=== PATIENT | male | born 1945 | race Caucasian/White ===

== ENCOUNTER 2016-10-27 16:25 | Emergency (ER) | payer MEDICARE, MEDICAID ==
[~2016-10-27] VITALS: Ht 182.9 cm; Wt 84.0 kg
[~2016-10-27 16:25] MED LIST: ACET-2178 PO; BUPR100T13 PO; GABA-290 PO; IPRA3AMP9 INH; LACT10SO PO; MULT-1146 PO; SUCR1TAB PO; TRAM150C26 PO
[2016-10-27] MEDS ORDERED: KETOROLAC 15MG/ML VIAL IV ONE (18:45)
[2016-10-27 19:06] VITALS: BP 115/76
== END 2016-10-27 19:34 | disposition home or self-care (01) ==
LOC: ER 16:26
DX: G62.9 Polyneuropathy, unspecified (principal); R52 Pain, unspecified; Z79.899 Other long term (current) drug therapy
CPT/HCPCS: 96374; 99284; J1885

== ENCOUNTER 2017-02-26 13:03 | Inpatient (IN) | payer MEDICARE, MEDICAID ==
[~2017-02-26] VITALS: Ht 182.9 cm; Wt 81.6 kg
[2017-02-26] MEDS ORDERED: SODIUM CHLORIDE 0.9% 1,000 ML IV ONE (14:29)
[2017-02-26] MEDS ORDERED: PIPERACILLIN/TAZOBACTAM 3.375GM/50ML PREMIX IV ONE (14:30)
[2017-02-26] MEDS ORDERED: CLINDAMYCIN 300 MG in DEXTROSE 5% WATER 50 ML IV ONE (14:30)
[2017-02-26] MEDS ORDERED: PIPERACILLIN/TAZ 3.375G PREMIX 50 ML IV NR (14:47)
[2017-02-26] MEDS ORDERED: CLINDAMYCIN 300 MG in DEXTROSE 5% WATER 50 ML IV SCH (15:00)
[2017-02-26 15:20] LABS: CLARITY URINE CLOUDY (CLEAR); COLOR URINE YELLOW (YELLOW); GLUCOSE URINE NEGATIVE (NEGATIVE); KETONES URINE NEGATIVE (NEGATIVE); LEUKOCYTE ESTERASE URINE 3+ (NEGATIVE); NITRITE URINE NEGATIVE (NEGATIVE); OCCULT BLOOD URINE 1+ (NEGATIVE); PH URINE 6.5 (4.5-8.0); PROTEIN URINE NEGATIVE (NEGATIVE); SPECIFIC GRAVITY URINE 1.015 (1.005-1.030)
[2017-02-26 15:24] LABS: CHLORIDE 110 mEq/L (98-107)
[2017-02-26 15:30] LABS: CARBON DIOXIDE 27 mEq/L (21-32)
[2017-02-26 16:44] LABS: BASOPHILS % 1.1 % (0.0-2.0); EOSINOPHILS % 4.3 % (0.0-5.0); HEMATOCRIT. 39.5 % (42.0-52.0); HEMOGLOBIN. 13.7 g/dL (14.0-18.0); LYMPHOCYTES % 22.1 % (20.0-50.0); MEAN CORPUSCULAR HEMOGLOBIN 34.7 pg (28.0-32.0); MEAN CORPUSCULAR VOLUME 99.7 fL (80.0-94.0); MEAN PLATELET VOLUME 9.2 fl (7.4-10.4); MONOCYTES % 8.4 % (2.0-8.0); NEUTROPHILS % 64.1 % (40.0-76.0); PLATELET 76 x1000/uL (130-400); RED BLOOD CELL COUNT 3.96 mill/uL (4.7-6.1); RED CELL DISTRIBUTION WIDTH 13.6 % (11.6-14.6)
[2017-02-26 20:50] VITALS: BP 146/85
[2017-02-26 22:00] VITALS: BP 146/85
[2017-02-26] MEDS ORDERED: HYDROCODONE/ACETAMINOPHEN 5/325MG TABLET PO PRN (22:15)
[2017-02-26] MEDS ORDERED: ACETAMINOPHEN 650MG/20.3ML UDC GT PRN (22:30)
[2017-02-26] MEDS ORDERED: ACETAMINOPHEN 650MG SUPP PR PRN (22:30)
[2017-02-26] MEDS ORDERED: CLONIDINE 0.1MG TABLET PO PRN (22:30)
[2017-02-26] MEDS ORDERED: IPRATROPIUM/ALBUTEROL 0.5-3(2.5)MG/3ML NEB INH PRN (22:30)
[2017-02-26] MEDS ORDERED: ONDANSETRON HCL 4MG/2ML VIAL IV PRN (22:30)
[2017-02-26] MEDS ORDERED: DIPHENHYDRAMINE 50MG/ML VIAL IV PRN (22:30)
[2017-02-26] MEDS ORDERED: ACETAMINOPHEN 325MG TABLET PO PRN (22:30)
[2017-02-26] MEDS ORDERED: GUAIFENESIN 200MG/10ML SUGAR FREE UDC PO PRN (22:30)
[2017-02-26] MEDS ORDERED: LORAZEPAM 0.5MG TABLET PO PRN (22:30)
[2017-02-26] MEDS ORDERED: DOCUSATE SODIUM 100MG CAPSULE PO PRN (22:30)
[2017-02-26] MEDS ORDERED: MAGNESIUM/ALUMINUM HYDROXIDE/SIMETHICONE 30ML UDC PO PRN (22:30)
[2017-02-26] MEDS ORDERED: NA PHOS,M-B/NA PHOS,DI-BA ENEMA 118ML PR PRN (22:30)
[2017-02-26] MEDS: AMLODIPINE 10MG TABLET PO SCH (22:56)
[2017-02-26] MEDS: HYDROCODONE/ACETAMINOPHEN 10/325MG TABLET PO PRN (22:56)
[2017-02-26] MEDS: SODIUM CHLORIDE 0.45% 1,000 ML IV SCH (23:25)
[2017-02-27] VITALS: BP 138/72
[2017-02-27] MEDS ORDERED: VANCOMYCIN 1 G PREMIX 200 ML IV NR (01:00)
[2017-02-27] MEDS: CEFTRIAXONE 1 G PREMIX 50 ML IV SCH (01:11)
[2017-02-27 04:00] VITALS: BP 142/59
[2017-02-27] MEDS: HYDROCODONE/ACETAMINOPHEN 5/325MG TABLET PO PRN ×2 (05:33→21:03)
[2017-02-27] MEDS: SODIUM CHLORIDE 0.9% INJ 3ML FLUSH IVF SCH ×3 (05:36→22:48)
[2017-02-27 07:48] LABS: BASOPHILS % 1.3 % (0.0-2.0); EOSINOPHILS % 8.5 % (0.0-5.0); HEMATOCRIT. 39.5 % (42.0-52.0); HEMOGLOBIN. 13.9 g/dL (14.0-18.0); LYMPHOCYTES % 25.9 % (20.0-50.0); MEAN CORPUSCULAR HEMOGLOBIN 35.1 pg (28.0-32.0); MEAN CORPUSCULAR VOLUME 99.8 fL (80.0-94.0); MEAN PLATELET VOLUME 8.9 fl (7.4-10.4); MONOCYTES % 11.2 % (2.0-8.0); NEUTROPHILS % 53.1 % (40.0-76.0); PLATELET 71 x1000/uL (130-400); RED BLOOD CELL COUNT 3.96 mill/uL (4.7-6.1); RED CELL DISTRIBUTION WIDTH 13.2 % (11.6-14.6)
[2017-02-27 08:00] VITALS: BP 101/69
[2017-02-27] MEDS: AMLODIPINE 10MG TABLET PO SCH (09:00)
[2017-02-27 12:00] VITALS: BP 115/76
[2017-02-27] MEDS: VANCOMYCIN 1 G PREMIX 200 ML IV SCH (13:21)
[2017-02-27 16:00] VITALS: BP 104/60
[2017-02-27 20:00] VITALS: BP 130/78
[2017-02-27] MEDS: SODIUM CHLORIDE 0.45% 1,000 ML IV SCH (22:48)
[2017-02-28] VITALS: BP 119/69
[2017-02-28] MEDS: VANCOMYCIN 1 G PREMIX 200 ML IV SCH (01:15)
[2017-02-28] MEDS: CEFTRIAXONE 1 G PREMIX 50 ML IV SCH (01:15)
[2017-02-28 04:00] VITALS: BP 108/67
[2017-02-28] MEDS: HYDROCODONE/ACETAMINOPHEN 5/325MG TABLET PO PRN ×2 (04:55→22:15)
[2017-02-28] MEDS: SODIUM CHLORIDE 0.45% 1,000 ML IV SCH (07:45)
[2017-02-28 08:00] VITALS: BP 96/61
[2017-02-28] MEDS: AMLODIPINE 10MG TABLET PO SCH (09:00)
[2017-02-28 12:00] VITALS: BP 110/66
[2017-02-28 12:41] LABS: BASOPHILS % 1.1 % (0.0-2.0); HEMATOCRIT. 43.4 % (42.0-52.0); HEMOGLOBIN. 15.1 g/dL (14.0-18.0); LYMPHOCYTES % 25.8 % (20.0-50.0); MEAN CORPUSCULAR HEMOGLOBIN 34.7 pg (28.0-32.0); MEAN CORPUSCULAR VOLUME 99.8 fL (80.0-94.0); MEAN PLATELET VOLUME 8.9 fl (7.4-10.4); MONOCYTES % 12.6 % (2.0-8.0); NEUTROPHILS % 54.5 % (40.0-76.0); PLATELET 73 x1000/uL (130-400); RED BLOOD CELL COUNT 4.35 mill/uL (4.7-6.1); RED CELL DISTRIBUTION WIDTH 13.3 % (11.6-14.6)
[2017-02-28 12:58] LABS: CARBON DIOXIDE 28 mEq/L (21-32); CHLORIDE 106 mEq/L (98-107)
[2017-02-28] MEDS: SODIUM CHLORIDE 0.9% INJ 3ML FLUSH IVF SCH ×2 (14:00→21:37)
[2017-02-28 16:00] VITALS: BP 105/53
[2017-02-28 20:00] VITALS: BP 121/74
[2017-02-28] MEDS ORDERED: VANCOMYCIN 1250MG in DEXTROSE 5% WATER 250ML IV SCH (20:00)
[2017-02-28] MEDS ORDERED: CEFTRIAXONE SODIUM 1 G/VIAL IM SCH (23:00)
[2017-03-01] VITALS: BP 126/81
[2017-03-01] MEDS: HYDROCODONE/ACETAMINOPHEN 10/325MG TABLET PO PRN (00:23)
[2017-03-01] MEDS: SODIUM CHLORIDE 0.45% 1,000 ML IV SCH ×2 (00:25→17:03)
[2017-03-01 04:00] VITALS: BP 101/66
[2017-03-01] MEDS ORDERED: VANCOMYCIN 1 G PREMIX 200 ML IV SCH (04:00)
[2017-03-01] MEDS: SODIUM CHLORIDE 0.9% INJ 3ML FLUSH IVF SCH ×2 (05:33→14:00)
[2017-03-01] MEDS: HYDROCODONE/ACETAMINOPHEN 5/325MG TABLET PO PRN (05:38)
[2017-03-01 08:00] VITALS: BP 110/66
[2017-03-01] MEDS: AMLODIPINE 10MG TABLET PO SCH (08:56)
[2017-03-01 12:00] VITALS: BP 95/52
[2017-03-01 15:15] VITALS: BP 95/52
[2017-03-01 16:00] VITALS: BP 127/77
[2017-03-01] MEDS ORDERED: CEFTRIAXONE SODIUM 1 G/VIAL IM SCH ×2 (20:15)
[2017-03-01] MEDS ORDERED: LIDOCAINE HCL 1% 20ML VIAL (Pyxis) INJ MC SCH (23:00)
== END 2017-03-01 17:45 | DRG 728 ==
LOC: ER 13:20 → 6EST 16:01 → EDBEDREQ 16:26 → ENRESERV 18:17 → 6EST 02-27
PROVIDERS: ADMIT Family Medicine; ATTEND Family Medicine
DX: N49.2 Inflammatory disorders of scrotum (principal); N39.0 Urinary tract infection, site not specified; E44.1 Mild protein-calorie malnutrition; I10 Essential (primary) hypertension; G62.9 Polyneuropathy, unspecified; N43.3 Hydrocele, unspecified; F32.9 Major depressive disorder, single episode, unspecified; Z68.24 Body mass index [BMI] 24.0-24.9, adult
CPT/HCPCS: 36415; 76870; 80053; 80061; 80202; 81001; 83605; 85025; 87040; 87070; 87077; 87086; 87186; 87205; 93976; 96365; 96367; 99285; C1893; J0696; J1200; J2543; J3370; J3490; J7030; J7060

== ENCOUNTER 2017-04-28 21:10 | Emergency (ER) | payer MEDICARE, MEDICAID ==
[~2017-04-28] VITALS: Ht 182.9 cm; Wt 82.0 kg
[~2017-04-28 21:10] MED LIST changes: +DUONEB3 ML INH; -IPRA3AMP9 INH; -TRAM150C26 PO; +TRAM150C40 PO
[2017-04-28 21:19] VITALS: BP 108/82
== END 2017-04-29 00:06 | disposition left against medical advice (07) ==
LOC: ER 21:10
DX: M79.644 Pain in right finger(s) (principal); Z53.21 Procedure and treatment not carried out due to patient leaving prior to being seen by health care provider

== ENCOUNTER 2017-07-26 19:05 | Emergency (ER) | payer MEDICARE, MEDICAID ==
[~2017-07-26] VITALS: Ht 182.9 cm; Wt 82.0 kg
[~2017-07-26 19:05] MED LIST changes: +TRAM150C25 PO; -TRAM150C40 PO
[2017-07-26 19:26] VITALS: BP 98/55
== END 2017-07-26 21:50 | disposition left against medical advice (07) ==
LOC: ER 19:08
DX: R51 Headache (principal); Z53.21 Procedure and treatment not carried out due to patient leaving prior to being seen by health care provider

== ENCOUNTER 2017-09-12 14:31 | Emergency (ER) | payer MEDICARE, MEDICAID ==
[~2017-09-12] VITALS: Ht 177.8 cm; Wt 78.0 kg
[2017-09-12 17:16] LABS: CLARITY URINE CLEAR (CLEAR); COLOR URINE YELLOW (YELLOW); KETONES URINE NEGATIVE (NEGATIVE); LEUKOCYTE ESTERASE URINE 1+ (NEGATIVE); NITRITE URINE NEGATIVE (NEGATIVE); OCCULT BLOOD URINE NEGATIVE (NEGATIVE); PH URINE 5.5 (4.5-8.0); PROTEIN URINE NEGATIVE (NEGATIVE); SPECIFIC GRAVITY URINE 1.012 (1.005-1.030); UROBILINOGEN URINE 0.2 E.U./dL (0.2-1.0)
[2017-09-12 17:20] LABS: BASOPHILS % 1.4 % (0.0-2.0); EOSINOPHILS % 8.9 % (0.0-5.0); HEMATOCRIT. 40.1 % (42.0-52.0); HEMOGLOBIN. 13.8 g/dL (14.0-18.0); LYMPHOCYTES % 43.9 % (20.0-50.0); MEAN CORPUSCULAR HEMOGLOBIN 35.5 pg (28.0-32.0); MEAN CORPUSCULAR VOLUME 103.4 fL (80.0-94.0); MEAN PLATELET VOLUME 8.2 fl (7.4-10.4); MONOCYTES % 8.7 % (2.0-8.0); NEUTROPHILS % 37.1 % (40.0-76.0); PLATELET 94 x1000/uL (130-400); RED BLOOD CELL COUNT 3.88 mill/uL (4.7-6.1); RED CELL DISTRIBUTION WIDTH 14.5 % (11.6-14.6)
[2017-09-12 17:25] LABS: CHLORIDE 110 mEq/L (98-107)
[2017-09-12 17:26] LABS: INR 1.2; PROTHROMBIN TIME 12.9 sec (9.4-11.6)
[2017-09-12 17:34] LABS: ETHANOL BLOOD 289 mg/dL
[2017-09-12 17:43] LABS: *AMPHETAMINES SCREEN URINE NEGATIVE (NEGATIVE); *BARBITURATES SCREEN URINE NEGATIVE (NEGATIVE); *BENZODIAZEPINES SCREEN URINE NEGATIVE (NEGATIVE); *COCAINE SCREEN URINE NEGATIVE (NEGATIVE); CANNABINOID URINE SCREEN NEGATIVE (NEGATIVE); METHADONE URINE SCREEN NEGATIVE (NEGATIVE); OPIATES URINE SCREEN NEGATIVE (NEGATIVE); PHENCYCLIDINE URINE SCREEN NEGATIVE (NEGATIVE)
[2017-09-12] MEDS ORDERED: FLUCONAZOLE 100MG TABLET PO ONE (21:00)
[2017-09-12] MEDS ORDERED: FLUCONAZOLE 150MG TABLET PO NR (23:30)
[2017-09-13 02:23] VITALS: BP 110/70
== END 2017-09-13 02:30 | disposition home or self-care (01) ==
LOC: ER 15:12
DX: T51.0X1A Toxic effect of ethanol, accidental (unintentional), initial encounter (principal); F10.229 Alcohol dependence with intoxication, unspecified; Y90.8 Blood alcohol level of 240 mg/100 ml or more; I67.82 Cerebral ischemia; N30.00 Acute cystitis without hematuria; J32.9 Chronic sinusitis, unspecified; R41.0 Disorientation, unspecified; Y92.89 Other specified places as the place of occurrence of the external cause
CPT/HCPCS: 36415; 70450; 80053; 80305; 81001; 85025; 85610; 99285; G0482

== ENCOUNTER 2018-10-24 05:05 | Emergency (ER) | payer MEDICARE, MEDICAID ==
[~2018-10-24] VITALS: Ht 170.2 cm; Wt 100.0 kg
[2018-10-24] MEDS ORDERED: LORAZEPAM 2MG/ML CPJ IV STA (05:39)
[2018-10-24] MEDS ORDERED: SODIUM CHLORIDE 0.9% 1,000 ML IV ONE (05:39)
[2018-10-24] MEDS ORDERED: ONDANSETRON HCL 4MG/2ML INJ IV STA (05:39)
[2018-10-24 06:01] LABS: BG BASE EXCESS -2.7 mmol/L (-2.0-2.0); BG CARBOXYHEMOGLOBIN 1.1 % (0.5-1.5); BG DEOXYHEMOGLOBIN 4.1 % (0.0-5.0); BG FRACTION INSPIRED OXYGEN 28; BG HCO3 ACT 23.5 mmol/L (22.0-26.0); BG METHEMOGLOBIN 0.2 % (0.0-1.5); BG OXYGEN SATURATION 95.8 % (92.0-98.5); BG OXYHEMOGLOBIN 94.6 % (94.0-97.0); BG PCO2 46.3 mmHg (35.0-45.0); BG PH 7.324 (7.350-7.450); BG PO2 94.7 mmHg (75.0-100.0); BG SAMPLE SITE RIGHT RADIAL; BG TOTAL HEMOGLOBIN 13.9 g/dL (12.0-18.0); BG VENT MODE NASAL CANNULA
[2018-10-24 06:02] LABS: BASOPHILS % 0.4 % (0.0-2.0); EOSINOPHILS % 4.9 % (0.0-5.0); HEMATOCRIT. 40.4 % (42.0-52.0); MEAN CORPUSCULAR HEMOGLOBIN 34.5 pg (28.0-32.0); MEAN CORPUSCULAR VOLUME 99.5 fL (80.0-94.0); MEAN PLATELET VOLUME 8.4 fl (7.4-10.4); MONOCYTES % 9.9 % (2.0-8.0); NEUTROPHILS % 58.8 % (40.0-76.0); PLATELET 99 x1000/uL (130-400); RED BLOOD CELL COUNT 4.06 mill/uL (4.7-6.1); RED CELL DISTRIBUTION WIDTH 13.9 % (11.6-14.6)
[2018-10-24 06:08] LABS: CHLORIDE 106 mEq/L (98-107)
[2018-10-24 06:12] LABS: ETHANOL BLOOD 253 mg/dL
[2018-10-24 06:17] LABS: CREATINE KINASE 295 IU/L (39-308)
[2018-10-24] MEDS ORDERED: SODIUM CHLORIDE 0.9% 1000ML BAG (SEPSIS BOLUS) IV ONE (07:00)
[2018-10-24] MEDS ORDERED: VANCOMYCIN 1 G PREMIX 200 ML IV ONE (07:00)
[2018-10-24] MEDS ORDERED: PIPERACILLIN/TAZ 3.375G PREMIX 50 ML IV ONE (07:00)
[2018-10-24 07:59] LABS: CLARITY URINE CLOUDY (CLEAR); COLOR URINE YELLOW (YELLOW); KETONES URINE NEGATIVE (NEGATIVE); LEUKOCYTE ESTERASE URINE 2+ (NEGATIVE); NITRITE URINE NEGATIVE (NEGATIVE); OCCULT BLOOD URINE TRACE (NEGATIVE); PROTEIN URINE NEGATIVE (NEGATIVE); SPECIFIC GRAVITY URINE 1.014 (1.005-1.030)
[2018-10-24 08:35] LABS: *AMPHETAMINES SCREEN URINE NEGATIVE (NEGATIVE); *BARBITURATES SCREEN URINE NEGATIVE (NEGATIVE); *BENZODIAZEPINES SCREEN URINE NEGATIVE (NEGATIVE); *COCAINE SCREEN URINE NEGATIVE (NEGATIVE)
[2018-10-24 08:45] LABS: CANNABINOID URINE SCREEN NEGATIVE (NEGATIVE); METHADONE URINE SCREEN NEGATIVE (NEGATIVE); OPIATES URINE SCREEN NEGATIVE (NEGATIVE); PHENCYCLIDINE URINE SCREEN NEGATIVE (NEGATIVE)
[2018-10-24] MEDS ORDERED: DEXT 5%/0.45% NACL 1000ML 1,000 ML IV SCH (09:05)
[2018-10-24] MEDS ORDERED: GUAIFENESIN 200MG/10ML SUGAR FREE UDC PO PRN (09:15)
[2018-10-24] MEDS ORDERED: IPRATROPIUM/ALBUTEROL 0.5-3(2.5)MG/3ML NEB INH PRN (09:15)
[2018-10-24] MEDS ORDERED: HYDROCODONE/ACETAMINOPHEN 5/325MG TABLET PO PRN (09:15)
[2018-10-24] MEDS ORDERED: CLONIDINE 0.1MG TABLET PO PRN (09:15)
[2018-10-24] MEDS ORDERED: ACETAMINOPHEN 325MG TABLET PO PRN (09:15)
[2018-10-24] MEDS ORDERED: MORPHINE SULFATE 4 MG/ML CPJ (NOT FOR IM USE) IV PRN (09:15)
[2018-10-24] MEDS ORDERED: ONDANSETRON HCL 4MG/2ML INJ IV PRN (09:15)
[2018-10-24] MEDS ORDERED: LORAZEPAM 2MG/ML CPJ IV PRN ×2 (09:15→15:30)
[2018-10-24] MEDS ORDERED: NA PHOS,M-B/NA PHOS,DI-BA ENEMA 118ML PR PRN (09:15)
[2018-10-24] MEDS ORDERED: DIPHENHYDRAMINE 50MG/ML VIAL IV PRN (09:15)
[2018-10-24] MEDS ORDERED: DOCUSATE SODIUM 100MG CAPSULE PO PRN (09:15)
[2018-10-24] MEDS ORDERED: MAGNESIUM/ALUMINUM HYDROXIDE/SIMETHICONE 30ML UDC PO PRN (09:15)
[2018-10-24] MEDS ORDERED: ASPIRIN 81MG EC TABLET PO NR (13:15)
[2018-10-24] MEDS ORDERED: PIPERACILLIN/TAZ 3.375G PREMIX 50 ML IV SCH ×2 (14:00→22:00)
[2018-10-24] MEDS ORDERED: ENOXAPARIN 40MG/0.4ML SYR SUBCUT SCH (15:00)
[2018-10-24 17:00] VITALS: BP 124/68
[2018-10-25] MEDS ORDERED: THIAMINE HCL 100MG TABLET PO SCH (09:00)
[2018-10-25] MEDS ORDERED: ASPIRIN 81MG EC TABLET PO SCH (09:00)
[2018-10-25] MEDS ORDERED: MULTIVITAMINS,THER W-MINERALS TABLET PO SCH (09:00)
[2018-10-25] MEDS ORDERED: FOLIC ACID 1MG TABLET PO SCH (09:00)
== END 2018-10-24 20:27 | disposition left against medical advice (07) ==
LOC: ER 05:05 → EDBEDREQ 08:37 → EDBEDREQTM 09:06 → EDBEDREQ 09:07 → ER 20:27 → CANBEDREQ 23:07
DX: A41.9 Sepsis, unspecified organism (principal); N39.0 Urinary tract infection, site not specified; D64.9 Anemia, unspecified; F10.20 Alcohol dependence, uncomplicated; Y90.8 Blood alcohol level of 240 mg/100 ml or more; Z79.899 Other long term (current) drug therapy
CPT/HCPCS: 36415; 36600; 70450; 71045; 80053; 80305; 80307; 80320; 80329; 81003; 82140; 82375; 82550; 82805; 82962; 83605; 84443; 84484; 85025; 87040; 87086; 87186; 93005; 96361; 96365; 96366; 96367; 96372; 96375; 99291; J1650; J2405; J2543; J3370; J7030; 99284; A4315; G0480